=== PATIENT | female | born 1985 | race Caucasian/White ===

== ENCOUNTER 2022-04-04 10:04 | Outpatient (CLI) | payer OTHER, SELFPAY ==
[2022-04-04 15:10] LABS: Albumin* 4.6 g/dL (3.3-5.0); Chloride* 105 mmol/L (96-114); Sodium* 139 mmol/L (135-149)
[2022-04-04 15:11] LABS: Potassium* 4.7 mmol/L (3.6-5.1)
[2022-04-04 15:12] LABS: Cholesterol* 205 mg/dL (90-199)
[2022-04-04 15:13] LABS: Alkaline Phosphatase* 93 U/L (40-150); Aspartate Amino Transferase* 27 U/L (12-35); Bilirubin Total* 0.4 mg/dL (0.1-1.5); Blood Urea Nitrogen* 13 mg/dL (5-24); Carbon Dioxide* 23 mmol/L (20-32); Creatinine* 0.8 mg/dL (0.5-1.5); Estimated Glomerular Filt Rate 98 ml/min; Glucose* 98 mg/dL (60-115); Total Protein* 7.9 g/dL (6.0-8.3); Triglycerides* 141 mg/dL (40-149)
[2022-04-04 15:14] LABS: Alanine Aminotransferase* 18 U/L (4-35); Calcium* 9.6 mg/dL (8.4-10.6); HDL Cholesterol* 54 mg/dL (>=50); LDL Cholesterol Calculated 123 mg/dL (<100)
[2022-04-05 19:28] LABS: Thyroid Peroxidase (TPO) Ab 1.5 IU/mL (0.0-9.0)
== END 2022-04-04 10:05 | disposition home or self-care (01) ==
PROVIDERS: PCP Family Medicine; Visit Provider Family Medicine
DX: Z01.419 Encounter for gynecological examination (general) (routine) without abnormal findings (principal); R03.0 Elevated blood-pressure reading, without diagnosis of hypertension; R63.5 Abnormal weight gain; Z13.1 Encounter for screening for diabetes mellitus; Z13.6 Encounter for screening for cardiovascular disorders
CPT/HCPCS: 80053; 80061; 84443; 86376